=== PATIENT | female | born 1960 ===

== ENCOUNTER 2020-09-03 05:50 | Day surgery (SDC) | payer OTHER ==
[~2020-09-03 05:50] MED LIST: ADVAIR HFA 230/12 GM IH; AMBIEN10 MG PO; CLONAZEPAM1 MG PO; FORTAMET500 MG PO; FOSAMAX PO; GABAPENT PO; GLIPIZIDE XL5 MG PO; HYZAA PO; SINGULAIR10 MG PO
[2020-09-03] MEDS ORDERED: DUI500 PO (09:03)
[2020-09-03] MEDS ORDERED: ASA325 M1 PO (09:03)
[2020-09-03] MEDS ORDERED: ULTRACET PO (09:03)
== END 2020-09-03 11:25 | disposition home or self-care (01) ==
LOC: CIR.AMB 05:50
PROVIDERS: ATTEND Orthopaedic Surgery
DX: S83.231A Complex tear of medial meniscus, current injury, right knee, initial encounter (principal); S83.271A Complex tear of lateral meniscus, current injury, right knee, initial encounter; M65.861 Other synovitis and tenosynovitis, right lower leg; M22.41 Chondromalacia patellae, right knee; Z20.822 Contact with and (suspected) exposure to COVID-19